=== PATIENT | female | born 1945 | race Caucasian/White ===

== ENCOUNTER 2021-05-14 11:47 | Emergency (ER) | payer OTHER, SELFPAY ==
[2021-05-14] VITALS (8 sets, daily range): BP systolic 138–211; BP diastolic 63–84; PULSE 66–74; RESP 15; TEMP 36.3; O2SAT 95–98; BMI 30.8
--- NOTE | 2021-05-14 12:25 | DI.CT.S_ITS ---
PROCEDURE: CT HEAD/BRAIN WO CON INDICATIONS: fall, head and right shoulder injury, pt takes Plavix TECHNIQUE: Noncontrast 4.5 mm thick angled axial sections acquired from the foramen magnum to the vertex, with coronal and sagittal reformats. For radiation dose reduction, the following was used: automated exposure control, adjustment of mA and/or kV according to patient size. COMPARISON: None. FINDINGS: Image quality: Excellent. CSF spaces: Basal cisterns are patent. No extra-axial fluid collections. The ventricles are symmetric in size and shape. Brain: No intracranial bleeds or masses. There is cerebral volume loss for age, with resultant ventricular and sulcal prominence. There are periventricular and deep white matter chronic small vessel ischemic changes. There is intracranial internal carotid artery atherosclerosis. Symmetric calcified choroid plexus can be seen, which is not regarded to be pathologic. Skull and face: Calvarium and visualized facial bones appear intact, without suspicious lesions. Sinuses: Visualized sinuses and mastoids are clear. IMPRESSION: No acute intracranial hemorrhage is seen. No acute intracranial process is seen. Note is made of age-appropriate brain parenchymal volume loss and chronic small vessel ischemic changes. Dictated by: Cristobal Wooten M.D. on 05/14/2021 at 12:06 Approved by: Cristobal Wooten M.D. on 05/14/2021 at 12:06
--- NOTE | 2021-05-14 12:25 | DI.RAD.S_ITS ---
PROCEDURE: XR SHOULDER RT MIN 2V INDICATIONS: fall TECHNIQUE: 3 views of the shoulder were acquired. COMPARISON: None. FINDINGS: Bones: No fractures or dislocations. No suspicious bony lesions. Visualized ribs appear intact. 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 1.3 centimeter and 0.8 centimeter ossifications project over the glenohumeral joint space suspicious for intra-articular loose bodies. Soft tissues: No suspicious soft tissue calcifications. IMPRESSION: No fracture. No acute osseous lesion. If symptoms and/or clinical suspicion for pathology persists, further assessment with repeat radiographs (7-10 days) or advanced imaging (e.g. CT, MRI or bone scan) should be considered. Dictated by: Marley Ruiz MD, PhD on 05/14/2021 at 13:07 Approved by: Marley Ruiz MD, PhD on 05/14/2021 at 13:08
--- NOTE | 2021-05-14 15:08 | DI.RAD.S_ITS ---
PROCEDURE: XR RIBS RT MIN 3V W CXR 1V INDICATIONS: fall, pain right ribs Right COMPARISON: None. FINDINGS: Surgical changes and devices: None. Bones and chest wall: No acute fractures or dislocations. Chronic left 7th and 8th rib fractures. No suspicious bony lesions. Overlying soft tissues appear unremarkable. Lungs and pleura: No pleural effusions or pneumothorax. Lungs appear clear. Mediastinum: Mediastinal contours appear normal. Heart size is normal. IMPRESSION: No acute cardiopulmonary disease process. No acute rib fracture. Dictated by: Marley Ruiz MD, PhD on 05/14/2021 at 15:27 Approved by: Marley Ruiz MD, PhD on 05/14/2021 at 15:28
--- NOTE | 2021-05-14 15:53 | ED.HEATRA ---
HPI - Head Injury General Chief complaint: Head Injury Stated complaint: Fall, Right Shoulder Pain Time Seen by Provider: 05/14/21 14:59 Source: patient Mode of arrival: Ambulatory Limitations: no limitations History of Present Illness HPI Narrative: This is a 75-year-old female who has right shoulder and a little bit of right chest pain. Patient states she was walking up a very steep hill when she started to fall backwards with her feet up ill in her head down hill. Patient states she ended up with her feet down and isn't sure exactly what happened if she had a tumbling fall. She denies any loss of consciousness. She states she would just lost her balance. She denies any new neck pain. She denies any current headache. Patient is on Plavix daily. Patient majority of her pain is right shoulder and any type of movement makes it worse. She does have some pain in her right chest which has been worsening over time. She denies any new numbness, tingling or weakness. She denies any shortness of breath. She is able to take a deep breath without any pain. Patient denies any nausea or vomiting no urinary or fecal incontinence. She denies any abdominal pain. She and her are visiting from [place]. Related Data Previous Rx's Medication Instructions Recorded oxycodone 5 mg tablet 5 mg PO QID PRN #10 tab 05/14/21 Allergies Allergy/AdvReac Type Severity Reaction Status Date / Time Penicillins Allergy Verified 05/14/21 12:22 Review of Systems Review of Systems ROS Unobtainable: All systems reviewed & are unremarkable except as noted in HPI and below Patient History Social History Smoking Status: Unknown if ever smoked Smoking Status: Unknown if ever smoked alcohol intake frequency: holidays/special occasions only Substance Use Type: does not use Exam Narrative Exam Narrative: GEN: Patient appears in mild distress. HEAD: No evidence of trauma, no raccoon/Zamorano sign. NECK: Nontender, painless range of motion, trachea midline Negative Nexus criteria, there is no mid line tenderness, distracting injury, altered mental status, neuro deficit, recent EtOH. EYES: PERRLA, EOMI ENT: External inspection normal, trachea is midline, TM's are normal no hemotypanum, Nares are clear, no septal hematoma, no dental or oral injury, airway is normal and with normal occlusion, No bony tenderness RESP: Chest is tender at the lateral ankle on the right ribs beneath the right breast Um there is point tenderness over ribs 6 7 region. And has symmetric movement, no ecchymosis, breath sounds are normal no crackles, wheezes or rales, no tachypnea accessory muscle use. CVS: Heart sounds are normal, no murmur noted, No JVD. ABG/GI: Nontender, soft, normal bowel sounds, no distention, no organomegaly, pelvic rock is negative NEURO: Oriented AOx3, neuro is grossly intact, sensation and motor is normal all 4 extremities moving, cranial nerves II through XII are intact, GCS is 15 PSYCH: Normal mood and affect SKIN: Intact, warm and dry, no crepitus and without decubitus BACK: No CVA tenderness, no vertebral tenderness, no step-off's, no crepitus EXT: Atraumatic except for pain of the right shoulder with movement. Patient does not have any bony tenderness, no tenderness of the clavicle, scapula, upper extremity, elbow forearm, hand or wrist. 2+ radial pulse. Full range of motion at the wrist and hand with normal strength. Patient also has normal movement at the elbow. hips are nontender, patient is able to stand and has normal movement and muscle strength in bilateral lower extremities with some cap refill less than 2 seconds bilaterally. Initial Vital Signs Initial Vital Signs: Vital Signs Temperature 97.4 F L 05/14/21 12:22 Pulse Rate 69 05/14/21 12:22 Respiratory Rate 15 05/14/21 12:22 Blood Pressure 150/71 H 05/14/21 12:22 Pulse Oximetry 96 05/14/21 12:22 Scores GCS [place] coma scale eye opening: Spontaneous [place] coma scale verbal response: Orientated [place] coma scale motor response: Obey commands Khadijah coma scale total score: 15 Course Orders Ordered: ED Orders 05/14/21 15:08 XR ribs RT min 3V w CXR1V Stat Discontinued Medications Acetaminophen (Acetaminophen 325 Mg Tablet) 975 mg PO NOW ONE Stop: 05/14/21 16:05 Last Admin: 05/14/21 16:15 Dose: 975 mg Documented by: JAMAL Vital Signs Vital signs: Vital Signs - 8 hr 05/14/21 14:57 05/14/21 14:58 05/14/21 15:00 Pulse Rate 74 73 71 Blood Pressure 167/78 H 163/84 H Pulse Oximetry 97 98 97 05/14/21 15:22 05/14/21 15:30 05/14/21 16:00 Pulse Rate 74 68 69 Blood Pressure 170/78 H 138/63 211/84 H Pulse Oximetry 97 95 97 05/14/21 16:10 Pulse Rate 66 Blood Pressure 165/73 H Pulse Oximetry 97 MDM - Head Injury Imaging Data CT scan - head: Radiologist's Impression: [address] [id number] Scan ReportSigned Patient: Blanca Guillory CMR#: [id number]: 4Acct:[id number]/Sex: 75 / FDate of Service: 05/14/21Loc: EDAccession Number: [id number] Procedure: CT head/brain wo con Ordering Provider: Mel Adams D.O. PROCEDURE: CT HEAD/BRAIN WO CON INDICATIONS: fall, head and right shoulder injury, pt takes Plavix TECHNIQUE: Noncontrast 4.5 mm thick angled axial sections acquired from the foramen magnum to the vertex, with coronal and sagittal reformats. For radiation dose reduction, the following was used: automated exposure control, adjustment of mA and/or kV according to patient size. COMPARISON: None. FINDINGS: Image quality: Excellent. CSF spaces: Basal cisterns are patent. No extra-axial fluid collections. The ventricles are symmetric in size and shape. Brain: No intracranial bleeds or masses. There is cerebral volume loss for age, with resultant ventricular and sulcal prominence. There are periventricular and deep white matter chronic small vessel ischemic changes. There is intracranial internal carotid artery atherosclerosis. Symmetric calcified choroid plexus can be seen, which is not regarded to be pathologic. Skull and face: Calvarium and visualized facial bones appear intact, without suspicious lesions. Sinuses: Visualized sinuses and mastoids are clear. IMPRESSION: No acute intracranial hemorrhage is seen. No acute intracranial process is seen. Note is made of age-appropriate brain parenchymal volume loss and chronic small vessel ischemic changes. Dictated by: Cristobal Wooten M.D. on 05/14/2021 at 12:06 Approved by: Cristobal Wooten M.D. on 05/14/2021 at 12:06 Extremity x-ray #1: Radiologist's Impression: [address] [id number] ReportSigned Patient: Blanca Guillory CMR#: [id number]: 4Acct:[id number]/Sex: 75 / FDate of Service: 05/14/21Loc: EDAccession Number: [id number] Procedure: XR shoulder RT min 2V Ordering Provider: Mel Adams D.O. PROCEDURE: XR SHOULDER RT MIN 2V INDICATIONS: fall TECHNIQUE: 3 views of the shoulder were acquired. COMPARISON: None. FINDINGS: Bones: No fractures or dislocations. No suspicious bony lesions. Visualized ribs appear intact. 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 1.3 centimeter and 0.8 centimeter ossifications project over the glenohumeral joint space suspicious for intra-articular loose bodies. Soft tissues: No suspicious soft tissue calcifications. IMPRESSION: No fracture. No acute osseous lesion. If symptoms and/or clinical suspicion for pathology persists, further assessment with repeat radiographs (7-10 days) or advanced imaging (e.g. CT, MRI or bone scan) should be considered. Dictated by: Marley Ruiz MD, PhD on 05/14/2021 at 13:07 Approved by: Marley Ruiz MD, PhD on 05/14/2021 at 13:08 [facility] Narrative Medical decision making narrative: This is a 75-year-old female with a mechanical ground level fall which was witnessed without loss of consciousness. Patient is on Plavix daily. She denies head ache or injury. Head CT was ordered which is negative patient's x-ray is negative but I suspect he has sprained or ligament/tendon injury is placed in a sling with plan for follow-up. Patient has a rib x-ray is negative for fracture but she has some tenderness. She does not have pain with deep inhalation but was given incentive spirometer. Prescription for narcotic pain medication for pain control she does take Tylenol regularly for pain. And return precautions discussed. Patient feels comfortable with plan. All questions answered. Discharge Plan Departure Patient Disposition: Home Clinical Impression: Sprain of right shoulder, Contusion of rib on right side Instructions: Shoulder Sprain, DI for Rib Fracture Activity Restrictions/Additional Instructions: Follow-up with your physician in the next week for recheck if your symptoms have not completely resolved in your shoulder. Expected have slow improvement of your right rib pain. New follow-up if you are not having any improvement at all. It may take several weeks to resolve. Your x-ray imaging today does not show any obvious signs of fracture in your ribs but you can have small nondisplaced fractures or contusions of the rib. Your shoulder x-ray does not show any obvious fractures but you can injure the tendons or ligaments. Use incentive spirometer once hourly while awake. You may continue home medications as prescribed. You may continue Tylenol that she normally take to a 1000 mg every 8 hours. If this is inadequate for pain control you may take narcotic pain medicine as prescribed. This medication can make you sleepy do not drive, perform hazardous activities or make any major decisions while taking it. This medication will make you constipated please take a stool softener once to twice daily until stools are soft and regular. Such as Colace. Elevated affected body part to decrease swelling. OK to use ice pack on the affected body part. Use for 15-20 minutes each time, for 5-6x per day. If you develop worsening pain, numbness, tingling, discoloration of the affected body part, readjust the sling, and either see your doctor for an urgent re-assessment, or return to the Emergency Department. Return to the Emergency Department for any new or worsening symptoms. Prescriptions: New oxycodone 5 mg tablet 5 mg PO QID PRN (Reason: pain) Qty: 10 RF: 0
[2021-05-14] MEDS: ACETAMINOPHEN 325 MG TABLET 975 MG PO (16:15)
== END 2021-05-14 16:30 | disposition home or self-care (01) ==
PROVIDERS: Emergency Provider Emergency Medicine
DX: S43.401A Unspecified sprain of right shoulder joint, initial encounter (principal); S20.211A Contusion of right front wall of thorax, initial encounter; S09.90XA Unspecified injury of head, initial encounter; W19.XXXA Unspecified fall, initial encounter; Z79.01 Long term (current) use of anticoagulants
CPT/HCPCS: 70450; 71101; 73030; 99284